=== PATIENT | female | born 1985 ===

== ENCOUNTER 2018-03-08 06:25 | Inpatient (IN) | payer BC, OTHER ==
[2018-03-08 06:35] VITALS: BMI 30.5
[2018-03-08] MEDS: Lactated Ringer's 1,000 ML IV ONE ×2 (06:40→08:00)
[2018-03-08] MEDS ORDERED: Oxytocin 30 units/LR 500ML 30 U/500 ML BAG IV ONE (06:44)
[2018-03-08] MEDS ORDERED: ceFAZolin IV 2 gm in Dextrose 2 GM/50 ML BAG IVPB ONE ×2 (07:27→08:02)
[2018-03-08 07:30] LABS: BASO # 0.1 K/uL (0.0-0.2); BASO % 0.6 % (0.0-2.0); EOS # 0.1 K/uL (0.0-0.7); HEMOGLOBIN 10.2 g/dL (12.0-16.0); LYMPH # 2.5 K/uL (1.0-4.3); LYMPH % 24.9 % (20.0-40.0); MEAN CELL VOLUME 79.2 fl (81.0-99.0); MEAN CORPUSCULAR HEMOGLOBIN 25.7 pg (27.0-31.0); MEAN CORPUSCULAR HGB CONC 32.5 g/dL (33.0-37.0); MEAN PLATELET VOLUME 8.6 fl (7.2-11.7); MONO # 0.7 K/uL (0.0-0.8); MONO % 7.1 % (0.0-10.0); NEUT # 6.7 K/uL (1.8-7.0); NEUT % 66.4 % (50.0-75.0); RBC 3.98 Mil/uL (3.80-5.20)
[2018-03-08] MEDS ORDERED: ePHEDrine 50 mg/ml Inj ONE (08:25)
[2018-03-08] MEDS ORDERED: Morphine 1 mg/ml preservative-free Inj(Duramorph) ONE (08:26)
[2018-03-08] MEDS ORDERED: Succinylcholine 200 mg/10 ml Inj IV ONE (08:29)
[2018-03-08] MEDS ORDERED: Phenylephrine 10 mg/ml Inj ONE (08:29)
[2018-03-08] MEDS ORDERED: Oxycodone/Acetaminophen 5/325 mg Tab PO PRN ×3 (10:05→13:21)
[2018-03-08] MEDS ORDERED: Lactated Ringer's 1,000 ML IV SCH (10:15)
--- NOTE | 2018-03-08 10:26 | OBDS ---
DELIVERY PERSONNEL Delivery Doctor: Morena Darden MD Coke Oven Patcher: Scarlett Rosales RN Anesthesiologist: Sanchez Weinberg MD Resident: Sanchez juárez MD MATERNAL INFORMATION Delivery Anesthesia: Spinal Medications in Delivery: pitocin Maternal Complications: None RN Comments: Atraumatic Repeat with BTL of a viable babyboy with lusty cry. Assessed by Jae Nicole assigned 9/9 APGARs. Skin to skin initiated and stopped due to mother feeling Nauseas. Patient tolerated delivery well. and patient recoverying well. Provider Comments: Pre-op dx: 32 yo at 39 wks, declines , desires permanent sterilizatio n Post-op dx: Same Procedure: Repeat low transverse section, bilateral tubal ligation Surgeon: Adelso Lease Out Man: Dr. Arredondo Anesthesiologist: Dr. Weinberg Anesthesia: Spinal Findings: Viable male delivered through clear fluid at 0912. Apgars 9 and 9. Wt 3550 gms, 7#13.2. Adhesions to the anterior aspect of the uterus, nl appearing tubes and ovaries. Complications: None EBL 750 mL EBL: 750mL LABOR SUMMARY EDC: 03/15/2018 00:00 No. Babies in Womb: 1 Attempted: No Labor Anesthesia: Spinal LABOR INFORMATION Reason for Induction: Not Applicable Oxytocin: N/A Group B Beta Strep: Negative Antibiotics # of Doses: 1 Antibiotics Time of Last Dose: 0840 Steroids Given: None Reason Steroids Not Administered: Not Applicable Other Reason Not Administered: not required MEMBRANES Membranes Rupture Method: Artificial Rupture of Membranes: 03/08/2018 09:12 Length of Rupture (hrs): 0.00 Amniotic Fluid Color: Clear Amniotic Fluid Amount: Small Amniotic Fluid Odor: Normal STAGES OF LABOR Stage 3 hrs: 0 Stage 3 min: 1 CSECTION DELIVERY Primary Indication: Repeat Elective CSection Urgency: Elective CSection Incidence: Repeat CSection Incision: Lower Uterine Transverse Sterilization Procedure: Song BABY A INFORMATION Delivery Date/Time: 03/08/2018 09:12 Method of Delivery: Born in Route : No : N/A Forceps: N/A Vacuum Extraction: N/A Shoulder Dystocia : No SHOULDER DYSTOCIA BABY A Infant Delivery Date/Time: 03/08/2018 09:12 PRESENTATION/POSITION BABY A Presentation: Cephalic Cephalic Presentation: Vertex Vertex Position: Left Occipital Anterior Breech Presentation: N/A PLACENTA INFORMATION BABY A Placenta Delivery Time : 03/08/2018 09:13 Placenta Method of Delivery: Manual Removal Placenta Status: Delivered SCORES BABY A Heart Rate 1 min: >100 bpm Resp Effort 1 min: Good Cry Reflex Irritability 1 min: Cough or Sneeze or Pulls Away Muscle Tone 1 min: Active Motion Color 1 min: Body Fabrica, Extremities Blue Resuscitation Effort 1 min: N/A SCORE 1 MIN: 9 Heart Rate 5 min: >100 bpm Resp Effort 5 min: Good Cry Reflex Irritability 5 min: Cough or Sneeze or Pulls Away Muscle Tone 5 min: Active Motion Color 5 min: Body Fabrica, Extremities Blue Resuscitation Effort 5 min: N/A SCORE 5 MIN: 9 INFORMATION BABY A Gestational Age at Delivery: 39.0 Gestational Status: Term Outcome : Liveborn Condition : Stable Sex: Male IDENTIFICATION/MEDS BABY A ID Band Number: [id number] ID Band Location: Right Leg; Right Arm WEIGHT/LENGTH BABY A Birthweight (gms): 3550 Weight (lb): 7 Infant Weight (oz): 13 Length Inches: 19.50 Infant Length cms: 49.5 CORD INFORMATION BABY A No. Cord Vessels: 3 Nuchal Cord : N/A Cord Blood Taken: No Suction: Mouth; Nose ASSESSMENT BABY A Infant Complications: None Physical Findings at Delivery: Within Normal Limits Respirations: Appears Normal Cane Flume Feeding Machine Operator/ALS Called : No Infant Care By: Dr nicole Transferred To: Remains with Mother
[2018-03-08] MEDS ORDERED: DiphenhydrAMINE 50 mg/ml Inj IVP PRN ×2 (12:51→13:21)
[2018-03-08] MEDS: Oxycodone/Acetaminophen 5/325 mg Tab PO PRN ×2 (13:36→19:11)
--- NOTE | 2018-03-08 20:13 | HP ---
HISTORY OF PRESENT ILLNESS: This is a 32-year-old G3, P1-0-1-1 at 39 weeks with an EDC of 03/15/2018 by LMP, consistent with a 22-week ultrasound, scheduled today for a repeat elective section and tubal ligation. The patient has a history of a prior section for distress and declined . She also desires permanent sterilization. The patient receives her care with [facility] with Dr. Darden. The patient was a late registrant. The patient's one-hour Glucola was 143 on 12/23/2017 and on 01/12/2018, 3-hour glucose tolerance test only had one value, the fasting value, which was elevated, not consistent with gestational diabetes. The patient has been recommended to take iron supplement because her hemoglobin was 10.9 on 12/23/2017 and Tdap was offered and the patient declined. PAST MEDICAL HISTORY: History of recurrent UTI; history of PID at 18, treated as an outpatient; history of a kidney stone. PAST SURGICAL HISTORY: Primary in 04/2014. MEDICATIONS: vitamins and iron supplements. GYNECOLOGIC HISTORY: She reports regular periods. She denies any history of any STDs or any abnormal Pap smears. Although, does report that she was treated for PID at 18 years old. FAMILY HISTORY: Noncontributory. SOCIAL HISTORY: The patient denies tobacco, alcohol, and illicit drug use. ALLERGIES: SHELLFISH AND IODINE. PAST OBSTETRIC HISTORY: In 2003, she had a TAB and in April,, she underwent a primary section for a female weighing 7 pounds 11 ounces for distress. LABS: On 10/12/2017, blood type 0 positive, antibody screen negative. Hemoglobin and electrophoresis was of normal pattern. Pap and HPV were negative. Urine culture was 1-9 K Gram-positive cocci isolated. T pallidum antibody was negative. HIV was nonreactive. Rubella was immune and hepatitis B surface antigen is nonreactive. On 10/13/2017. Panorama was low risk, male fetus. Cystic fibrosis, fragile X, SMA and Duchenne muscular dystrophy were all negative. On 11/08/2017, urine culture showed no growth. On 11/15/2017, maternal serum AFP was negative. On 12/23/2017, T pallidum antibody was negative. HIV was nonreactive and 1- hour Glucola was 143. Three-hour glucose tolerance test with fasting at 95, 1 hour was 126, 2 hour was 104, and 3 hour was 102. On 02/28/2018, GBS was negative. PHYSICAL EXAMINATION: GENERAL: The patient appears comfortable, lying in bed. VITAL SIGNS: Afebrile, vital signs stable. ABDOMEN: Soft, nontender, gravid. EXTERNAL MONITORING: Baseline is in the 130s with moderate variability and positive accelerations. Tocodynamometer: Difficult to discern. No definite contraction seen. ASSESSMENT AND PLAN: This is a 32-year-old G3, P1-0-1-1 at 39 weeks, who is scheduled for an elective repeat section with bilateral tubal ligation. Consents for the procedure and for possible transfusion obtained. All questions answered. Carolina Darden MD MTDD
[2018-03-09] MEDS: Oxycodone/Acetaminophen 5/325 mg Tab PO PRN ×3 (01:46→13:27)
--- NOTE | 2018-03-09 02:40 | OP ---
PROCEDURE DATE: 03/08/2018 PREOPERATIVE DIAGNOSES: This is a 32-year-old, 3, para 1-0-1-1 at 39 weeks, declines vaginal after section, and desires permanent sterilization. POSTOPERATIVE DIAGNOSES: This is a 32-year-old, 3, para 1-0-1-1 at 39 weeks, declines vaginal after section, and desires permanent sterilization. PROCEDURE: Repeat low transverse section and a bilateral tubal ligation. SURGEON: Carolina Darden MD LEAD ELECTRICIAN: Pan Arredondo MD. Dr. Arredondo was the surgical garment inspector and participated in the surgery for the entire duration of the case. He helped create exposure. He also helped maintain hemostasis, operated throughout the case on the side of the patient that was across from him, and assisted in the delivery of the by applying fundal pressure. He also ligated and cut the left tube. This case could not have been completed without his assistance. ANESTHESIOLOGIST: Jack Weinberg MD TYPE OF ANESTHESIA: Spinal. FINDINGS: A viable male delivered through clear fluid at 0912. Apgars 9 and 9 at one and five minutes respectively, and the weight was 3550 gm or 7 pounds 13.2 ounces. There were adhesions to the anterior aspect of the uterus. Normal-appearing tubes and ovaries. COMPLICATIONS: None. ESTIMATED BLOOD LOSS: About 750 mL. DESCRIPTION OF PROCEDURE: The patient was taken to the operating room where spinal anesthesia was placed. She was then prepped and draped in the normal sterile fashion in the dorsal supine position with a leftward tilt. A Evans was placed in her bladder. A time-out was done. The spinal was tested and found to be adequate. A Pfannenstiel skin incision was then made with the scalpel and carried through to the underlying layer of fascia with the Bovie. The fascia was incised in the midline. The incision was extended laterally with the Bovie over a Shayy. The inferior aspect of the fascial incision was then grasped with the Zulay clamps, elevated and the underlying rectus muscles were dissected off bluntly with the Bovie. Attention was then turned to the superior aspect of this incision, which in a similar fashion was grasped, tented up with the Zulay clamps, and the rectus muscles dissected off bluntly with the Bovie. The rectus muscles were then in the midline. The peritoneum was identified, tented up and entered sharply with the Metzenbaum scissors. The peritoneal incision was then extended superiorly and inferiorly with good visualization of the bladder. The bladder blade was then inserted, and the vesicouterine peritoneum was identified, grasped with the pickups and entered sharply with Metzenbaum scissors. The incision was then extended laterally, and the bladder flap was created digitally. The bladder blade was then reinserted, and the lower uterine segment was incised in a transverse fashion with the scalpel. The uterine incision was then extended laterally digitally. The bladder blade was removed. The 's head delivered atraumatically. The nose and mouth were both suctioned with the bulb suction. The cord was clamped and cut. The was handed off to the awaiting audiologist. Cord blood was collected. The placenta was then removed manually. The uterus was exteriorized by using the Bovie to cut the adhesions that were attached to the anterior aspect of the uterus. The uterus was then cleared of all clots and debris with a dry sponge curettage. The uterine incision was repaired with 0 Vicryl in a running locked fashion. There was a tear in the serosa of the anterior aspect of the uterus, which was repaired with a [id number] suture of 2-0 chromic for hemostasis. Attention was then turned to the patient's left tube. The Sky clamp was then used to grasp the tube approximately 4 cm from the cornual region. A 3 cm segment of tube was then ligated with a 2-0 plain gut and excised. Good hemostasis was noted. The Bovie was applied to the ends of the tubes for hemostasis. Attention was then turned to the right tube, which in a similar fashion was held up with a Sky clamp, and a 2-0 plain gut was used to ligate the 3 cm segment of tube, which was then excised. Good hemostasis was noted and again the Bovie was applied to the tubal ends for hemostasis. The abdomen was then irrigated. The uterus was then returned to the abdomen. The gutters were cleared of all clots. The uterine incision was re-examined. The uterus was re-examined after it was placed back in the abdomen. There was some oozing around the right side of the incision, which was controlled with the Bovie. The uterine incision then appeared hemostatic. The tubes were re-examined and found to be hemostatic. The peritoneum was then closed with 0 chromic. The rectus muscle was then reapproximated with interrupted stitches of 2-0 chromic. The fascia was reapproximated with 0 Vicryl in a running fashion. The space of the subcutaneous fat was closed with interrupted stitches of 2-0 plain gut. The skin was then closed in a subcuticular fashion using a 4-0 Monocryl. The patient tolerated the procedure well. Sponge, lap, and needle counts were correct. The patient received 2 gm of Ancef prior to the procedure. The patient was taken to the recovery room in stable condition. Carolina Darden MD MTDD
[2018-03-09 06:17] LABS: HEMOGLOBIN 9.7 g/dL (12.0-16.0); MEAN CELL VOLUME 78.5 fl (81.0-99.0); MEAN CORPUSCULAR HEMOGLOBIN 26.3 pg (27.0-31.0); MEAN CORPUSCULAR HGB CONC 33.4 g/dL (33.0-37.0); RBC 3.7 Mil/uL (3.80-5.20); RED CELL DISTRIBUTION WIDTH 16.7 % (11.5-14.5)
[2018-03-09] MEDS ORDERED: Multivitamin With Minerals Tab PO SCH (09:00)
[2018-03-09] MEDS: Multivitamin With Minerals Tab PO SCH (11:35)
[2018-03-09] MEDS: Simethicone 80 mg Chewtab PO PRN ×2 (14:28→20:33)
[2018-03-10] MEDS: Oxycodone/Acetaminophen 5/325 mg Tab PO PRN ×2 (01:14→12:02)
--- NOTE | 2018-03-10 07:06 | OBPPN ---
Datetime: 03/10/2018 06:57 PP Pain Prov: Abnormal PP Nausea Prov: Denies PP Flatus Prov: Yes PP BM Prov: No PP Abdomen/Uterus Prov: Normal PP Lochia Prov: Normal PP Extremities Prov: Normal PP C/S Incision Prov: Normal PP Comments Phys Exam Prov: Incision: intact w/ steri strips PP Impression Prov: Normal progression PP Plan Prov: Continue present management PP Progress Note Prov: POD 2 s/p repeat c/s, BTL, c/o pain and gas, breast and bottle feeding Encourage that she try motrin and not just percocet Continue mylicon and encourage ambulation Vital Signs Provider PP: Reviewed
[2018-03-10] MEDS: Simethicone 80 mg Chewtab PO PRN (07:55)
[2018-03-10] MEDS: Multivitamin With Minerals Tab PO SCH (07:59)
[2018-03-11] MEDS: Multivitamin With Minerals Tab PO SCH (08:12)
--- NOTE | 2018-03-11 09:04 | OBPPN ---
Datetime: 03/11/2018 08:59 PP Pain Prov: Within normal limits PP Nausea Prov: Denies PP Flatus Prov: Yes PP Breasts Prov: Normal PP Heart Prov: Normal PP Lungs Prov: Normal PP Abdomen/Uterus Prov: Normal PP Lochia Prov: Normal PP Vulva/Perineum Prov: Normal PP CVA Tenderness Prov: Normal PP Extremities Prov: Normal PP Comments Phys Exam Prov: Abd: SOft, NT, BS present UT- Firm Incision: Clean and dry PP Impression Prov: Normal progression PP Plan Prov: Continue present management PP Progress Note Prov: S/P Delivery, POD #3 Clinically Stable Plan: D/c Home F/U with Dr Priest Vital Signs Provider PP: Reviewed
--- NOTE | 2018-03-11 09:04 | OBDCSUM ---
Datetime: 03/11/2018 09:02 Discharged to, Provider: Home Follow up at, Provider: Dr Priest Disch Instr Activity: Normal activity Disch Instr Diet: Regular Discharge Instructions, Provider: Routine instructions given Discharge Diagnosis, Provider: Term Delivered Discharge Time: 03/11/2018 09:02 Follow up in weeks, Provider: 2 weeks Disch Referrals: None Contraception discussed, Prov: Yes Discharge Comment, Provider: S/P uncomplicated Delivery, Clinically Stable Discharge Diagnosis Prov Other: S/P uncomplicated Delivery, Clinically Stable
[2018-03-11 18:02] VITALS: BP 119/71; PULSE 83; RESP 20; TEMP 98.5; O2SAT 99
== END 2018-03-11 13:30 | disposition home or self-care (01) | DRG 766 ==
LOC: H.EROB2 06:25 → H.L&D 06:40 → H.OB/GYN 12:45
PROVIDERS: ADMIT Obstetrics & Gynecology Gynecology; ATTEND Obstetrics & Gynecology Gynecology
PROC: 10D00Z1 Extraction of Products of Conception, Low, Open Approach (ICD-10-PCS; principal; 2018-03-08)
PROC: 0UB70ZZ Excision of Bilateral Fallopian Tubes, Open Approach (ICD-10-PCS; 2018-03-08)
PROC: 4A1HXCZ Monitoring of Products of Conception, Cardiac Rate, External Approach (ICD-10-PCS; 2018-03-08)
DX: O34.211 Maternal care for low transverse scar from previous cesarean delivery (principal); Z37.0 Single live birth; N85.8 Other specified noninflammatory disorders of uterus; Z30.2 Encounter for sterilization; Z3A.39 39 weeks gestation of pregnancy; Z87.440 Personal history of urinary (tract) infections; Z87.442 Personal history of urinary calculi